=== PATIENT | female | born 1970 | race Asian ===

== ENCOUNTER 2025-04-13 12:13 | Emergency (ER) | payer SELFPAY ==
[2025-04-13 12:25] VITALS: BP 125/85; PULSE 78; RESP 18; TEMP 36.6
--- NOTE | 2025-04-13 12:45 | DI.RAD_ITS ---
Exam(s) XR KNEE LT 3V AP,LAT,JULIANNE EXAM: XR KNEE LT 3V AP,LAT,JULIANNE CLINICAL HISTORY: Left knee pain. TECHNIQUE: 2D digital imaging was performed. Three views. COMPARISON: No exams were available for comparison FINDINGS: BONES: No acute fracture is present. No bony destructive lesion is seen. Prior ACL repair. JOINTS: The knee is normally aligned. A small joint effusion is seen. SOFT TISSUE: Normal. IMPRESSION: Small joint effusion. DATA REPOSITORY: RADIATION DOSE DELIVERED:
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
[2025-04-13 13:47] VITALS: O2SAT 100
[2025-04-13 13:52] LABS: Abs Immature Grans 0.01 10^3/uL (0.0-0.06); HCT 38.2 % (36.0-46.0); HGB 11.9 g/dL (11.2-15.7); Immature Grans % 0.2 %; MCH 25.9 pg (27.0-33.0); MCHC 31.2 % (32.0-36.0); MCV 83 fL (80-95); MPV 11.1 fL (8.0-11.0); Platelet Count 208 10^3/uL (130-400); RBC 4.59 10^6/uL (3.93-5.22); RDW 14.4 % (11.7-14.6); RDW-SD 43.3 fL; WBC 5.65 10^3/uL (4.4-10.8)
[2025-04-13 14:05] LABS: Anion Gap 9.4 mmol/L (3-11); BUN 29 mg/dL (7-18); CO2 27.6 mmol/L (21.0-32.0); Calcium 9.7 mg/dL (8.5-10.1); Chloride 104 mmol/L (98-107); Estimated GFR 65.71 (mL/min/1.73m2); Glucose 103 mg/dL (74-106); Potassium 4.2 mmol/L (3.5-5.1); Sodium 141 mmol/L (136-145)
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
[2025-04-13] MEDS: Normal Saline Flush 10 ML SYR IVP (14:38)
[2025-04-13] MEDS: Normal Saline - Diluent 50 ML VIAL IJ (14:38)
[2025-04-13] MEDS: Omnipaque 350 MG/ML 100 ML BTL IJ (14:39)
[2025-04-13] MEDS: Ibuprofen 400 MG TAB PO (16:24)
[2025-04-13] MEDS: Acetaminophen 325 MG TAB 650 MG PO (16:25)
[2025-04-13 16:41] VITALS: BP 142/95; PULSE 78; RESP 16; TEMP 36.8; O2SAT 99
== END 2025-04-13 16:45 | disposition home or self-care (01) ==
PROVIDERS: Emergency Provider Emergency Medicine
DX: S30.11XA Contusion of abdominal wall, initial encounter (principal); M25.562 Pain in left knee; M25.462 Effusion, left knee; V47.6XXA Car passenger injured in collision with fixed or stationary object in traffic accident, initial encounter
CPT/HCPCS: 99284; 99285; 73562; 74177; 80048; 70450; 71260; 72125; 85025; J3490